=== PATIENT | female | born 1955 | race Caucasian/White ===

== ENCOUNTER 2018-09-14 06:33 | Day surgery (SDC) | payer OTHER ==
[~2018-09-14] VITALS: Ht 170.2 cm; Wt 97.1 kg
[~2018-09-14 06:33] MED LIST: ALEV220T26 PO; ALTA1CAP2 PO; SULF1TAB93 PO
[2018-09-14] MEDS ORDERED: NS 1,000 ML IV SCH (06:45)
[2018-09-14] MEDS ORDERED: LIDOCAINE 2% INJ 100 MG/5 ML SDV (FOR ANES.) As Ordered ONE (07:00)
[2018-09-14] MEDS ORDERED: PROPOFOL 200 MG/20 ML VIAL As Ordered ONE (07:01)
--- NOTE | 2018-09-14 07:53 | ROOR ---
Patient Name: Karis Dean Procedure Date: 09/14/2018 7:34 AM Date of : 1955 Age: 63 Room: [facility] Gender: Female Note Status: Finalized Procedure: Total Colonoscopy to Cecum Indications: Screening for colorectal malignant neoplasm Providers: Jack Villafana MD Referring MD: JEREMY BARKER NP Requesting Provider: Medicines: Monitored Anesthesia Care Complications: No immediate complications. Procedure: Pre-Anesthesia Assessment: - The heart rate, respiratory rate, oxygen saturations, blood pressure, adequacy of pulmonary ventilation, and response to care were monitored throughout the procedure. The Colonoscope was introduced through the anus and advanced to the cecum, identified by appendiceal orifice and ileocecal valve. The colonoscopy was performed without difficulty. The patient tolerated the procedure well. The quality of the bowel preparation was excellent. Findings: The perianal and digital rectal examinations were normal. Non-bleeding internal hemorrhoids were found during retroflexion. The hemorrhoids were small and Grade I (internal hemorrhoids that do not prolapse). Scattered small-mouthed diverticula were found in the recto-sigmoid colon, sigmoid colon and descending colon. The exam was otherwise without abnormality on direct and retroflexion views. Impression: - Non-bleeding internal hemorrhoids. - Diverticulosis in the recto-sigmoid colon, in the sigmoid colon and in the descending colon. - The examination was otherwise normal on direct and retroflexion views. - No specimens collected. - The exam was otherwise normal to the cecum. Recommendation: - Patient has a contact number available for emergencies. The signs and symptoms of potential delayed complications were discussed with the patient. Return to normal activities tomorrow. Written discharge instructions were provided to the patient. - High fiber diet. - Discharge patient to home. - Continue present medications. - Repeat colonoscopy in 10 years for screening purposes. - Return to referring physician. - The findings and recommendations were discussed with the patient's family. Jack Villafana MD Jack Villafana MD 09/14/2018 7:52:54 AM Electronically signed by Jack Villafana MD Number of Addenda: 0 Note Initiated On: 09/14/2018 7:34 AM Estimated Blood Loss: Estimated blood loss: none.
[2018-09-14 08:10] VITALS: BP 125/69
== END 2018-09-14 08:19 | disposition home or self-care (01) ==
LOC: M OPP 06:33
PROVIDERS: ATTEND Internal Medicine Gastroenterology
DX: Z12.11 Encounter for screening for malignant neoplasm of colon (principal); K64.0 First degree hemorrhoids; K57.30 Diverticulosis of large intestine without perforation or abscess without bleeding; I10 Essential (primary) hypertension; Z88.1 Allergy status to other antibiotic agents; Z79.899 Other long term (current) drug therapy

== ENCOUNTER 2019-02-23 15:04 | Emergency (ER) | payer OTHER ==
[~2019-02-23] VITALS: Ht 170.2 cm; Wt 101.0 kg
[2019-02-23] MEDS ORDERED: PRED20TA PO ×2 (15:11→16:28)
[2019-02-23] MEDS ORDERED: APAP325T4 PO (15:16)
[2019-02-23] MEDS ORDERED: MUCI600T31 PO (15:21)
--- NOTE | 2019-02-23 16:07 | REP ---
CT maxillofacial: 02/23/2019. Indication: Facial pain. Comparison: None. Technique: Unenhanced axial CT images of the face were obtained with coronal and sagittal reconstructions provided. Findings: There is no patient of fracture, subluxation or dislocation. The paranasal sinuses and sinonasal passageways are essentially clear with exception of a small radicular cyst within the left inferior maxillary sinus. No facial soft tissue abnormalities are detected. No erosive osseous abnormalities are present. The visualized ocular and intraorbital anatomy is normal. Impression: No facial bone fracture or additional acute pathology detected. No significant sinus disease. Electronically Signed by Angelo Roblero DO 02/23/2019 04:00 P
[2019-02-23] MEDS ORDERED: ACETAMINOPHEN 500 MG TAB PO ONE (16:30)
[2019-02-23] MEDS ORDERED: IBUPROFEN 800 MG TAB PO ONE (16:30)
[2019-02-23 16:34] VITALS: BP 135/70
== END 2019-02-23 16:46 | disposition home or self-care (01) ==
LOC: M ED 15:04
DX: H66.92 Otitis media, unspecified, left ear (principal); I10 Essential (primary) hypertension; Z79.899 Other long term (current) drug therapy; Z88.0 Allergy status to penicillin

== ENCOUNTER → 2020-08-05 | Outpatient (CLI) | payer SELFPAY ==
[~2020-08-05] MED LIST changes: +APAP325T4 PO; +MUCI600T31 PO; +PRED20TA PO
== END ==
LOC: M LABSMTC 13:48
PROVIDERS: ATTEND Pediatrics
DX: Z20.822 Contact with and (suspected) exposure to COVID-19 (principal)

== ENCOUNTER → 2021-09-25 | Outpatient (CLI) | payer MEDICARE ==
[~2021-09-25] MED LIST changes: +BACTDSTA PO; -SULF1TAB93 PO
== END ==
LOC: M ONCR 10:30
PROVIDERS: ATTEND General Practice
DX: C50.511 Malignant neoplasm of lower-outer quadrant of right female breast (principal); Z79.811 Long term (current) use of aromatase inhibitors; Z79.899 Other long term (current) drug therapy; Z88.1 Allergy status to other antibiotic agents; Z92.3 Personal history of irradiation

== ENCOUNTER → 2021-10-07 | Outpatient (RCR) | payer MEDICARE | LOC: M ONCR 08:31 | PROVIDERS: ATTEND General Practice | DX: C50.511 Malignant neoplasm of lower-outer quadrant of right female breast (principal) ==

== ENCOUNTER → 2021-11-06 | Outpatient (RCR) | payer MEDICARE | LOC: M ONCR 10-08 14:52 | PROVIDERS: ATTEND General Practice | DX: C50.511 Malignant neoplasm of lower-outer quadrant of right female breast (principal) ==

== ENCOUNTER 2021-11-12 09:15 | Outpatient (RCR) | payer MEDICARE | END 2021-12-07 | LOC: M ONCR 09:15 | PROVIDERS: ATTEND General Practice | DX: C50.511 Malignant neoplasm of lower-outer quadrant of right female breast (principal) ==

== ENCOUNTER → 2022-04-21 | Outpatient (CLI) | payer MEDICARE | LOC: M ONCR 08:33 | PROVIDERS: ATTEND General Practice | DX: C50.511 Malignant neoplasm of lower-outer quadrant of right female breast (principal); N60.31 Fibrosclerosis of right breast; Z79.811 Long term (current) use of aromatase inhibitors; Z80.1 Family history of malignant neoplasm of trachea, bronchus and lung; Z92.3 Personal history of irradiation ==

== ENCOUNTER 2022-06-03 11:16 | Outpatient (RCR) | payer MEDICARE | END 2022-06-09 | LOC: M PT 11:16 | PROVIDERS: ATTEND Physician Assistant | DX: I89.0 Lymphedema, not elsewhere classified (principal); C50.911 Malignant neoplasm of unspecified site of right female breast; Z17.0 Estrogen receptor positive status [ER+] ==

== ENCOUNTER → 2022-08-13 | Outpatient (CLI) | payer MEDICARE ==
[2022-08-13 10:08] LABS: BLOOD UREA NITROGEN 20 MG/DL (9-23); CREATININE FOR GFR 0.92 MG/DL (0.55-1.30); GLOMERULAR FILTRATION RATE > 60.0 (>45)
== END ==
LOC: M LAB 08:52
PROVIDERS: ATTEND Otolaryngology
DX: H93.13 Tinnitus, bilateral (principal); K13.79 Other lesions of oral mucosa

== ENCOUNTER → 2022-08-24 | Outpatient (CLI) | payer MEDICARE ==
[~2022-08-24] MED LIST changes: +PROHANCE 279.3MG/ML 15ML VIAL As Ordered ONE; +PROHANCE 279.3MG/ML 5ML VIAL As Ordered ONE
== END ==
LOC: M RAD 12:21
PROVIDERS: ATTEND Otolaryngology
DX: K13.79 Other lesions of oral mucosa (principal); H93.13 Tinnitus, bilateral
CPT/HCPCS: 70543; A9576

== ENCOUNTER → 2022-09-08 | Outpatient (REF) | payer MEDICARE ==
[~2022-09-08] MED LIST changes: -PROHANCE 279.3MG/ML 15ML VIAL As Ordered ONE; -PROHANCE 279.3MG/ML 5ML VIAL As Ordered ONE
== END ==
LOC: M LAB REF 08:34
PROVIDERS: ATTEND Otolaryngology
DX: L85.8 Other specified epidermal thickening (principal); D10.1 Benign neoplasm of tongue

== ENCOUNTER → 2025-04-23 | Outpatient (REF) | payer MEDICARE ==
[~2025-04-23] MED LIST changes: -BACTDSTA PO; +SULF-8 PO
== END ==
LOC: M LAB REF 12:11
PROVIDERS: ATTEND Internal Medicine
DX: R53.83 Other fatigue (principal)